=== PATIENT | female | born 1940 | race Two or more races ===

== ENCOUNTER 2017-02-26 18:21 | Emergency (ER) | payer OTHER, MEDICAID ==
[~2017-02-26] VITALS: Ht 149.9 cm; Wt 63.5 kg
[2017-02-26 18:25] VITALS: BP 145/71
[2017-02-26] MEDS ORDERED: LISINOPRIL2.5 MG ORAL (18:31)
[2017-02-26] MEDS ORDERED: IBUPROFEN600 MG ORAL (19:46)
--- NOTE | 2017-02-26 21:59 | Emergency Room Report ---
History of Present Illness General Chief Complaint: Lower Extremity Injury Source: Patient (NEWTON GARZA) Present Illness HPI The patient is a 76-year-old female presenting for left ankle pain. She states that she was walking and stepped on a pinecone with her left shoe, and felt the ankle fold underneath her today. Pain is 8/10 dull ache to the L outer ankle. Worse with touch and movement. She denies falling. She denies any other symptoms including N, V, calf pain, CP, SOB, numbness (NEWTON GARZA.Ramya) Allergies: Coded Allergies: No Known Allergies (Unverified , 02/26/17) Patient History Past Medical History: see triage record Pertinent Family History: none Reviewed Nursing Documentation: PMH: Agreed, PSxH: Agreed (NEWTON GARZA) Nursing Documentation-PMH Past Medical History: No History, Except For Hx Hypertension: Yes (NEWTON GARZA) Review of Systems All Other Systems: negative except mentioned in HPI (NEWTON [email or web address].[email or web address]) Physical Exam Vital Signs Date Time Temp Pulse Resp B/P (MAP) Pulse Ox O2 Delivery O2 Flow Rate FiO2 02/26/17 18:25 97.7 92 18 145/71 99 Room Air Sp02 EP Interpretation: reviewed, normal General Appearance: no apparent distress, alert, GCS 15, non-toxic Head: normocephalic, atraumatic Eyes: bilateral eye normal inspection, bilateral eye PERRL Musculoskeletal: back normal, no calf tenderness, decreased range of motion, swelling - L lateral ankle, tender - TTP over L lateral ankle Neurologic: alert, oriented x3, responsive, motor strength/tone normal, sensory intact, speech normal Psychiatric: judgement/insight normal, memory normal, mood/affect normal, no suicidal/homicidal ideation Skin: normal color, no rash, warm/dry, well hydrated (NEWTON GARZA.Ramya) Procedures Splinting Splinting : Consent: Verbal Location: L ankle Pre-Made Type: CELINE wrap Pre-Proc Neuro Vasc Exam: normal Post-Proc Neuro Vasc Exam: normal Patient Tolerated: Well Complications: None (NEWTON GARZA.[email or web address]) Medical Decision Making PA Attestation Dr. Rich is my supervising physician. Patient management was discussed with my supervising physician (NEWTON GARZA) Diagnostic Impression: Primary Impression: Left ankle sprain Qualified Codes: S93.402A - Sprain of unspecified ligament of left ankle, initial encounter Additional Impression: Avulsion fracture of metatarsal bone with routine healing ER Course The patient is a 76-year-old female presenting for left ankle pain. Physical exam: Vitals within normal limits. No apparent distress Left ankle: There is tenderness to palpation and edema over the left lateral malleolus. Limited active range of motion. Sensation intact to light touch. X-ray of the left ankle is unremarkable Left ankle placed in CELINE wrap and cast shoe. ER precautions are given with RICE instructions. Patient given prescription for Motrin and will follow up with primary care physician. (NEWTON GARZA) ER Course Pt with 5th metatarsal avulsion fx on XR I spoke with patient today instructed for her to continue wearing the hard sole shoe and to fu with orthopedics in 1 week she verbalized understandint (Gerardo Reyes M.D.) Other X-Ray Diagnostic Results Other X-Ray Diagnostic Results : X-Ray ordered: L ankle # of Views/Limited Vs Complete: 3 View Indication: Pain EP Interpretation: Yes PA Xray: Interpretation reviewed, by supervising MD, and agrees with findings. Interpretation: no dislocation, no soft tissue swelling, no fractures Impression: No acute disease Electronically Signed by: Newton Garza PA-C (NEWTON GARZA) Last Vital Signs Date Time Temp Pulse Resp B/P (MAP) Pulse Ox O2 Delivery O2 Flow Rate FiO2 02/26/17 20:08 97.7 02/26/17 20:08 18 145/71 99 Room Air 02/26/17 18:25 92 Status: improved (NEWTON GARZA) Disposition: HOME, SELF-CARE Condition: Improved Scripts Ibuprofen* (MOTRIN*) 600 Mg Tablet 600 MG ORAL Q8H Y for For Pain, #30 TAB 0 Refills Prov: NEWTON GARZA 02/26/17 Referrals: [facility],REFERRING (PCP) Patient Instructions: Ankle Sprain Additional Instructions: I discussed my findings with the patient. All questions and concerns have been answered. Treatment and medication compliance have been addressed. I advised the patient that they need to follow up with PMD in 3-5 days. Return to ED if pain remains or worsens, numbness or tingling occurs, new rash is noticed, fever is noticed, or if needed for any reason. Patient verbalized understanding of discharge instructions. NEWTON GARZA Feb 26, 2017 21:59 Gerardo Reyes M.D. Mar 02, 2017 16:13
--- NOTE | 2017-02-27 08:17 | Diagnostic Imaging Report ---
Indication: Pain Technique: XRAY Ankle Compl Min 3v L Comparison: None Findings: There is a transverse lucency through the base of the fifth metatarsal compatible with a fracture. A well-corticated density projecting adjacent to the posterior malleolus on lateral view is noted. This may represent sequela of remote trauma or degenerative change. There are dorsal and plantar calcaneal enthesophytes. Ankle mortise is intact on these nonstress views. Mild degenerative changes noted in the partially imaged forefoot articulations. Impression: Nondisplaced fracture of the base of the fifth metatarsal. This is discrepant from the interpretation from the treating ER physician. Findings discussed with Dr. Reyes of the ER at 8:10 AM on .
--- NOTE | 2017-03-02 16:42 | Emergency Room Report ---
Physical Exam Vital Signs Date Time Temp Pulse Resp B/P (MAP) Pulse Ox O2 Delivery O2 Flow Rate FiO2 02/26/17 18:25 97.7 92 18 145/71 99 Room Air Medical Decision Making PA Attestation Dr. Reyes is my supervising physician. Patient management was discussed with my supervising physician Diagnostic Impression: Primary Impression: Left ankle sprain Qualified Codes: S93.402A - Sprain of unspecified ligament of left ankle, initial encounter Additional Impression: Avulsion fracture of metatarsal bone with routine healing ER Course The patient's daughter returned the call for x-ray discrepancy. There is a fracture that was not seen originally. She states the pain has improved and the patient has appointment with her doctor tomorrow. I informed her of the fracture. The patient has Mike wrap around the ankle as well as a hard boot. She was told she can return to the emergency department but she said she will just keep the appointment for tomorrow. Last Vital Signs Date Time Temp Pulse Resp B/P (MAP) Pulse Ox O2 Delivery O2 Flow Rate FiO2 02/26/17 20:08 97.7 02/26/17 20:08 18 145/71 99 Room Air 02/26/17 18:25 92 Status: improved Disposition: HOME, SELF-CARE Condition: Improved Scripts Ibuprofen* (MOTRIN*) 600 Mg Tablet 600 MG ORAL Q8H Y for For Pain, #30 TAB 0 Refills Prov: ISAIAH GARZA 02/26/17 Referrals: [facility],REFERRING (PCP) Patient Instructions: Ankle Sprain Additional Instructions: I discussed my findings with the patient. All questions and concerns have been answered. Treatment and medication compliance have been addressed. I advised the patient that they need to follow up with PMD in 3-5 days. Return to ED if pain remains or worsens, numbness or tingling occurs, new rash is noticed, fever is noticed, or if needed for any reason. Patient verbalized understanding of discharge instructions. ISAIAH GARZA Mar 02, 2017 16:42
== END 2017-02-26 20:08 | disposition home or self-care (01) ==
LOC: EMR 18:59
DX: S93.402A Sprain of unspecified ligament of left ankle, initial encounter (principal); S92.352A Displaced fracture of fifth metatarsal bone, left foot, initial encounter for closed fracture; I10 Essential (primary) hypertension; X50.1XXA Overexertion from prolonged static or awkward postures, initial encounter; Y92.9 Unspecified place or not applicable
CPT/HCPCS: 99283

== ENCOUNTER 2017-08-08 16:59 | Emergency (ER) | payer OTHER, MEDICAID ==
[~2017-08-08] VITALS: Ht 152.4 cm; Wt 54.4 kg
[~2017-08-08 16:59] MED LIST: IBUPROFEN600 MG ORAL; LISINOPRIL2.5 MG ORAL
[2017-08-08 17:21] VITALS: BP 139/108
[2017-08-08 17:57] LABS: APPEARANCE,URINE CLEAR; BILIRUBIN, URINE NEGATIVE (NEGATIVE); GLUCOSE, URINE (UA) NEGATIVE (NEGATIVE); KETONES,URINE NEGATIVE (NEGATIVE); LEUKOCYTE ESTERASE ,URINE 1+ (NEGATIVE); NITRITE,URINE NEGATIVE (NEGATIVE); PH,URINE 6 (4.5-8.0); PROTEIN,URINE 1+ (NEGATIVE); UROBILINOGEN,URINE NORMAL MG/DL (0.0-1.0)
[2017-08-08 17:58] LABS: BASOPHILS % (AUTO) 2.4 % (0.0-2.0); EOSINOPHILS % (AUTO) 1.4 % (0.0-3.0); HEMATOCRIT 38.8 % (37.0-47.0); HEMOGLOBIN 13.1 G/DL (12.0-16.0); LYMPHOCYTES % (AUTO) 20.5 % (20.0-45.0); MEAN CORPUSCULAR VOLUME 84 FL (80-99); MONOCYTES % (AUTO) 10.2 % (1.0-10.0); NEUTROPHILS % (AUTO) 65.4 % (45.0-75.0); PLATELET COUNT 301 K/UL (150-450); RED BLOOD COUNT 4.61 M/UL (4.20-5.40); WHITE BLOOD COUNT 5.8 K/UL (4.8-10.8)
[2017-08-08 17:59] LABS: COLOR,URINE YELLOW
[2017-08-08 18:37] LABS: ANION GAP 13 mmol/L (5-15); BLOOD UREA NITROGEN 32 mg/dL (7-18); CALCIUM 9.4 MG/DL (8.5-10.1); CARBON DIOXIDE 24 MMOL/L (21-32); CHLORIDE 95 MMOL/L (98-107); CREATININE 0.8 MG/DL (0.55-1.30); SODIUM 132 MMOL/L (136-145)
[2017-08-08 18:43] LABS: ALANINE AMINOTRANSFERASE 28 U/L (12-78); ALBUMIN 4.1 G/DL (3.4-5.0); ALKALINE PHOSPHATASE 92 U/L (46-116); ASPARTATE AMINO TRANSFERASE 30 U/L (15-37); BILIRUBIN,TOTAL 0.7 MG/DL (0.2-1.0)
[2017-08-08 18:51] VITALS: BP 147/63
[2017-08-08] MEDS ORDERED: Isovue-300 100ml vial INJ PRN (19:00)
[2017-08-08] MEDS ORDERED: CHLORTHALIDONE25 MG ORAL (19:46)
[2017-08-08] MEDS ORDERED: LISINOPRIL40 MG ORAL (19:46)
[2017-08-08] MEDS ORDERED: ATORVASTATIN CA20 MG ORAL (19:46)
--- NOTE | 2017-08-08 20:39 | Emergency Room Report ---
History of Present Illness General Chief Complaint: Abdominal Pain Source: Patient Present Illness HPI 76-year-old female presents ED with abdominal pain and nausea and vomiting 3 days. Pain is epigastric, sharp, 8 out of 10, nonradiating. Denies chest pain or shortness of breath. Denies fevers or chills. Denies any diarrhea. No other aggravating relieving factors. Denies any other associated symptoms Allergies: Coded Allergies: No Known Allergies (Unverified , 02/26/17) Patient History Past Medical History: HTN Past Surgical History: none Pertinent Family History: none Social History: Denies: smoking, alcohol use, drug use Now: No Immunizations: UTD Reviewed Nursing Documentation: PMH: Agreed; PSxH: Agreed Nursing Documentation-PMH Hx Hypertension: Yes Review of Systems All Other Systems: negative except mentioned in HPI Physical Exam Vital Signs Date Time Temp Pulse Resp B/P (MAP) Pulse Ox O2 Delivery O2 Flow Rate FiO2 08/08/17 17:11 98.5 83 20 149/59 96 Room Air 98.4 Sp02 EP Interpretation: reviewed, normal General Appearance: no apparent distress, alert, GCS 15, non-toxic Head: normocephalic, atraumatic Eyes: bilateral eye normal inspection, bilateral eye PERRL ENT: hearing grossly normal, normal pharynx, no angioedema, normal voice Neck: full range of motion, supple/symm/no masses Respiratory: chest non-tender, lungs clear, normal breath sounds, speaking full sentences Cardiovascular #1: regular rate, rhythm, no edema Cardiovascular #2: 2+ carotid (R), 2+ carotid (L), 2+ radial (R), 2+ radial (L) , 2+ dorsalis pedis (R), 2+ dorsalis pedis (L) Gastrointestinal: normal bowel sounds, soft, non-distended, no guarding, no rebound, tenderness - epigastric Rectal: deferred Genitourinary: normal inspection, no CVA tenderness Musculoskeletal: back normal, gait/station normal, normal range of motion, non- tender Neurologic: alert, oriented x3, responsive, motor strength/tone normal, sensory intact, speech normal Psychiatric: judgement/insight normal, memory normal, mood/affect normal, no suicidal/homicidal ideation Reflexes: 3+ bicep (R), 3+ bicep (L), 3+ tricep (R), 3+ tricep (L), 3+ knee (R) , 3+ knee (L) Skin: normal color, no rash, warm/dry, well hydrated Lymphatic: no adenopathy Medical Decision Making Diagnostic Impression: Primary Impression: Pancreatitis Qualified Codes: K85.90 - Acute pancreatitis without necrosis or infection, unspecified ER Course Hospital Course 76-year-old female presents to ED with abdominal pain Differential diagnoses include: BPH, cystitis, pyelonephritis, kidney stone Clinical course Patient placed on stretcher. cardiac monitor. After initial history and physical I ordered labs, IV fluids, pepcid, zofran Labs - no leukocytosis, Hb/Hct stable. electrolytes ok. Lipase > 2000 CT ordered. discussed findings with patient. I recommend admission Patient states she wishes to go home. Understands the risks of leaving. Patient has competency to make her own decisions. Signed AMA form. I feel this is a highly complex case requiring extensive working including EKG/ Rhythm strip, Xray/CT/US, Blood/urine lab work, repeat exams while in ED, and administration of strong opiates/narcotics for pain control, admission to hospital or close patient follow up. Diagnosis - acute pancreatitis patient leaves AMA Labs Test 08/08/17 17:10 08/08/17 17:40 Urine Color Yellow Urine Appearance Clear Urine pH 6 (4.5-8.0) Urine Specific [place] 1.015 (1.005-1.035) Urine Protein 1+ (NEGATIVE) Urine Glucose (UA) Negative (NEGATIVE) Urine Ketones Negative (NEGATIVE) Urine Occult Blood 1+ (NEGATIVE) Urine Nitrite Negative (NEGATIVE) Urine Bilirubin Negative (NEGATIVE) Urine Urobilinogen Normal MG/DL (0.0-1.0) Urine Leukocyte Esterase 1+ (NEGATIVE) Urine RBC 2-4 /HPF (0 - 2) Urine WBC 2-4 /HPF (0 - 2) Urine Squamous Epithelial Cells Few /LPF (NONE/OCC) Urine Bacteria Few /HPF (NONE) White Blood Count 5.8 K/UL (4.8-10.8) Red Blood Count 4.61 M/UL (4.20-5.40) Hemoglobin 13.1 G/DL (12.0-16.0) Hematocrit 38.8 % (37.0-47.0) Mean Corpuscular Volume 84 FL (80-99) Mean Corpuscular Hemoglobin 28.4 PG (27.0-31.0) Mean Corpuscular Hemoglobin Concent 33.7 G/DL (32.0-36.0) Red Cell Distribution Width 11.0 % (11.6-14.8) Platelet Count 301 K/UL (150-450) Mean Platelet Volume 6.7 FL (6.5-10.1) Neutrophils (%) (Auto) 65.4 % (45.0-75.0) Lymphocytes (%) (Auto) 20.5 % (20.0-45.0) Monocytes (%) (Auto) 10.2 % (1.0-10.0) Eosinophils (%) (Auto) 1.4 % (0.0-3.0) Basophils (%) (Auto) 2.4 % (0.0-2.0) Sodium Level 132 MMOL/L (136-145) Potassium Level 4.0 MMOL/L (3.5-5.1) Chloride Level 95 MMOL/L (98-107) Carbon Dioxide Level 24 MMOL/L (21-32) Anion Gap 13 mmol/L (5-15) Blood Urea Nitrogen 32 mg/dL (7-18) Creatinine 0.8 MG/DL (0.55-1.30) Estimat Glomerular Filtration Rate mL/min (>60) Glucose Level 118 MG/DL (74-106) Calcium Level 9.4 MG/DL (8.5-10.1) Total Bilirubin 0.7 MG/DL (0.2-1.0) Aspartate Amino Transf (AST/SGOT) 30 U/L (15-37) Alanine Aminotransferase (ALT/SGPT) 28 U/L (12-78) Alkaline Phosphatase 92 U/L (46-116) Troponin I 0.023 ng/mL (0.000-0.056) Total Protein 8.3 G/DL (6.4-8.2) Albumin 4.1 G/DL (3.4-5.0) Globulin 4.2 g/dL Albumin/Globulin Ratio 1.0 (1.0-2.7) Lipase > 2000 U/L (73-393) EKG Diagnostic Results Rate: normal Rhythm: NSR ST Segments: no acute changes ASA given to the pt in ED: No Rhythm Strip Diag. Results EP Interpretation: yes Rhythm: NSR, no PVC's, no ectopy Last Vital Signs Date Time Temp Pulse Resp B/P (MAP) Pulse Ox O2 Delivery O2 Flow Rate FiO2 08/08/17 18:51 98.5 70 15 147/63 100 Room Air 98.5 Status: unchanged Disposition: AGAINST MEDICAL ADVICE Condition: Stable Referrals: [facility],REFERRING (PCP) Clovis Lawrence MD Aug 08, 2017 20:39
[2017-08-08 20:42] VITALS: BP 147/63
== END 2017-08-08 19:40 | disposition left against medical advice (07) ==
LOC: EMR 17:45
DX: K85.90 Acute pancreatitis without necrosis or infection, unspecified (principal); I10 Essential (primary) hypertension
CPT/HCPCS: 36415; 80053; 81003; 83690; 84484; 85025; 93005; 96360; 96374; 96375; 99283; J2405; S0028

== ENCOUNTER 2018-06-06 00:34 | Emergency (ER) | payer OTHER, MEDICAID ==
[~2018-06-06] VITALS: Ht 147.3 cm; Wt 52.2 kg
[~2018-06-06 00:34] MED LIST changes: +ATORVASTATIN CA20 MG ORAL; +CHLORTHALIDONE25 MG ORAL; +LISINOPRIL40 MG ORAL
[2018-06-06 00:45] VITALS: BP 138/83
--- NOTE | 2018-06-06 00:45 | NUR ---
ED Nurse Note: Pt arrived ED from home, c/o right lower leg pain 6/10 started 2 days ago. Pt is A/O X4. Vital signs stable at this time, waiting for orders.
--- NOTE | 2018-06-06 01:19 | NUR ---
ED Nurse Note: Waiting for venous doplus, U/S called.
[2018-06-06] MEDS ORDERED: TYLENOL EXTRA500 MG ORAL (03:20)
[2018-06-06 03:31] VITALS: BP 134/73
--- NOTE | 2018-06-06 04:15 | NUR ---
ER DISCHARGE NOTE: Patient is cleared to be discharged per Dr. Lawrence. Pt is A/Ox4 on room air with stable vital signs. Pt was given dc and prescription instructions, pt was able to verbalize understanding. Pt's ID band removed. Pt is able to ambulate with steady gait and took all belongings.Accompanied by her family.
--- NOTE | 2018-06-06 04:44 | Emergency Room Report ---
History of Present Illness General Chief Complaint: Pain Source: Patient Present Illness HPI 77-year-old female presents ED for evaluation. Patient complaining of right calf pain and swelling started tonight. Pain is dull, 5 out of 10, nonradiating. Calf appears swollen compared to left side. Denies chest pain or shortness of breath. He denies any recent fall or injury. No other aggravating relieving factors. Denies any other associated symptoms Allergies: Coded Allergies: No Known Allergies (Unverified , 02/26/17) Patient History Past Medical History: HTN Past Surgical History: none Pertinent Family History: none Social History: Denies: smoking, alcohol use, drug use Last Menstrual Period: menopause Now: No Immunizations: UTD Reviewed Nursing Documentation: PMH: Agreed; PSxH: Agreed Nursing Documentation-PMH Hx Hypertension: Yes Review of Systems All Other Systems: negative except mentioned in HPI Physical Exam Vital Signs Date Time Temp Pulse Resp B/P (MAP) Pulse Ox O2 Delivery O2 Flow Rate FiO2 06/06/18 00:45 97.8 76 19 138/83 97 Room Air Sp02 EP Interpretation: reviewed, normal General Appearance: no apparent distress, alert, GCS 15, non-toxic Head: normocephalic Eyes: bilateral eye normal inspection, bilateral eye PERRL ENT: normal ENT inspection Neck: normal inspection Respiratory: normal inspection Cardiovascular #1: normal inspection Gastrointestinal: normal inspection Rectal: deferred Genitourinary: no CVA tenderness Musculoskeletal: calf tenderness, swelling - R calf Neurologic: alert, oriented x3, responsive, motor strength/tone normal, sensory intact, speech normal Psychiatric: normal inspection Skin: normal inspection Lymphatic: normal inspection Medical Decision Making Diagnostic Impression: Primary Impression: Calf pain Qualified Codes: M79.661 - Pain in right lower leg ER Course Hospital Course 77-year-old female present ED complaining of R calf pain and swelling Differential diagnoses include: DVT, cellulitis, contusion, abscess Clinical course Patient placed on stretcher after initial history and physical I ordered DVT ultrasound. Doppler ultrasound shows no evidence of DVT Likely Strain. Discussed findings with patient. Safe for discharge with close outpatient follow-up. We'll provide ortho referral I. I feel this is a highly complex case requiring extensive working including EKG/Rhythm strip, Xray/CT/US, Blood/urine lab work, repeat exams while in ED, and administration of strong opiates/narcotics for pain control, admission to hospital or close patient follow up. Diagnosis - calf pain Stable and discharged to home with Rx Tylenol. Followup with PMD/ortho. Return to ED if symptoms recur or worsen CT/MRI/US Diagnostic Results CT/MRI/US Diagnostic Results : Imaging Test Ordered: Venous Duplex RLE Impression no evidence of DVT Last Vital Signs Date Time Temp Pulse Resp B/P (MAP) Pulse Ox O2 Delivery O2 Flow Rate FiO2 06/06/18 03:31 98.7 73 18 134/73 97 Room Air Status: improved Disposition: HOME, SELF-CARE Condition: Stable Scripts Acetaminophen* (TYLENOL EXTRA STRENGTH*) 500 Mg Tablet 500 MG ORAL Q8H PRN for Prn Headache/Temp > 101, #30 TAB 0 Refills Prov: Clovis Lawrence MD 06/06/18 [facility]errals: [facility] Open 24 hour /7 days a week by Appointment Only [address] [facility] [address] [facility] [address] Patient Instructions: Muscle Strain, [id number] Clovis Lawrence MD Jun 06, 2018 04:43
--- NOTE | 2018-06-06 11:08 | Diagnostic Imaging Report ---
Indication: Right leg pain Technique: Grayscale and duplex images of the right lower survey veins Comparison: none Findings: Grayscale and duplex images demonstrate no evidence of intraluminal thrombus. Normal phasic Doppler waveforms, demonstrating normal augmentation response and no evidence of valvular insufficiency. Normal compressibility of all deep veins. Impression: Negative for evidence of right lower extremity venous thrombosis This agrees with the preliminary interpretation provided overnight by [facility] tel[facility]iology service.
== END 2018-06-06 03:31 | disposition home or self-care (01) ==
LOC: EMR 01:09
DX: M79.604 Pain in right leg (principal); I10 Essential (primary) hypertension
CPT/HCPCS: 93971; 99284